=== PATIENT | male | born 1940 | race Caucasian/White ===

== ENCOUNTER → 2016-09-16 | Outpatient (REF) | payer MEDICARE, BC ==
[~2016-09-16] MED LIST: /WARF25TA; /WARF25TA PO; /WARF5TA; AMLO10TA2 PO; ANDROGEL; ASPI81TA4 PO; LISI10TA4; LISIPOW PO; LOVAZA; MULTIVIT; OSTETAB PO; PERC5TAB8; PERCOCET PO; PRIL20CA PO; TYLE325T5 PO
[2016-09-16 12:18] LABS: ANION GAP 8 MEQ/L (8-16); BLOOD UREA NITROGEN 21 MG/DL (7-18); CARBON DIOXIDE LEVEL 27 MEQ/L (21-32); CHLORIDE LEVEL 106 MEQ/L (98-107); CREATININE FOR GFR 0.86 MG/DL (0.70-1.30); GLOMERULAR FILTRATION RATE > 60.0 (>42); GLUCOSE, FASTING 97 MG/DL (83-110); POTASSIUM SERUM 3.9 MEQ/L (3.5-5.1); SODIUM LEVEL 141 MEQ/L (136-145)
== END ==
LOC: M LABDRAWC 11:18
PROVIDERS: ATTEND Internal Medicine Cardiovascular Disease
DX: I10 Essential (primary) hypertension (principal)

== ENCOUNTER → 2016-10-22 | Outpatient (REF) | payer MEDICARE, BC ==
[2016-10-22 11:47] LABS: ALBUMIN 3.5 GM/DL (3.2-5.2); ALBUMIN/GLOBULIN RATIO 1.17 (1.00-1.93); ALKALINE PHOSPHATASE 81 U/L (45-117); ALT/SGPT 35 U/L (12-78); ANION GAP 6 MEQ/L (8-16); AST/SGOT 15 U/L (15-37); BILIRUBIN,TOTAL 0.5 MG/DL (0.2-1.0); BLOOD UREA NITROGEN 20 MG/DL (7-18); CALCIUM LEVEL 8.8 MG/DL (8.8-10.2); CARBON DIOXIDE LEVEL 30 MEQ/L (21-32); CHLORIDE LEVEL 106 MEQ/L (98-107); CHOLESTEROL LEVEL 228 MG/DL (<200); CREATININE FOR GFR 0.84 MG/DL (0.70-1.30); GLOMERULAR FILTRATION RATE > 60.0 (>42); GLUCOSE, FASTING 107 MG/DL (83-110); POTASSIUM SERUM 4.2 MEQ/L (3.5-5.1); SODIUM LEVEL 142 MEQ/L (136-145); TOTAL PROTEIN 6.5 GM/DL (6.4-8.2); TRIGLYCERIDES LEVEL 119 MG/DL (<150)
== END ==
LOC: M SFHCCLAY 07:39
PROVIDERS: ATTEND Family Medicine
DX: I10 Essential (primary) hypertension (principal); E78.2 Mixed hyperlipidemia; Z12.5 Encounter for screening for malignant neoplasm of prostate
CPT/HCPCS: 80053; 80061; 84443; G0103

== ENCOUNTER → 2017-05-01 | Outpatient (REF) | payer MEDICARE, BC ==
[2017-05-01 12:40] LABS: ALBUMIN 3.6 GM/DL (3.2-5.2); ALBUMIN/GLOBULIN RATIO 1.16 (1.00-1.93); ALKALINE PHOSPHATASE 74 U/L (45-117); ALT/SGPT 38 U/L (12-78); ANION GAP 9 MEQ/L (8-16); AST/SGOT 18 U/L (7-37); BILIRUBIN,TOTAL 0.6 MG/DL (0.2-1.0); BLOOD UREA NITROGEN 19 MG/DL (7-18); CALCIUM LEVEL 8.7 MG/DL (8.8-10.2); CARBON DIOXIDE LEVEL 27 MEQ/L (21-32); CHLORIDE LEVEL 104 MEQ/L (98-107); CHOLESTEROL LEVEL 237 MG/DL (<200); CREATININE FOR GFR 0.93 MG/DL (0.70-1.30); GLOMERULAR FILTRATION RATE > 60.0 (>42); GLUCOSE, FASTING 117 MG/DL (83-110); SODIUM LEVEL 140 MEQ/L (136-145); TOTAL PROTEIN 6.7 GM/DL (6.4-8.2); TRIGLYCERIDES LEVEL 120 MG/DL (<150)
== END ==
LOC: M SFHCCLAY 07:56
PROVIDERS: ATTEND Family Medicine
DX: I10 Essential (primary) hypertension (principal); E78.2 Mixed hyperlipidemia

== ENCOUNTER → 2017-11-20 | Outpatient (REF) | payer MEDICARE, BC ==
[2017-11-20 12:01] LABS: ALBUMIN 3.4 GM/DL (3.2-5.2); ALBUMIN/GLOBULIN RATIO 1.13 (1.00-1.93); ALKALINE PHOSPHATASE 70 U/L (45-117); ALT/SGPT 29 U/L (12-78); ANION GAP 10 MEQ/L (8-16); AST/SGOT 17 U/L (7-37); BILIRUBIN,TOTAL 0.5 MG/DL (0.2-1.0); BLOOD UREA NITROGEN 20 MG/DL (7-18); CALCIUM LEVEL 8.5 MG/DL (8.8-10.2); CARBON DIOXIDE LEVEL 28 MEQ/L (21-32); CHLORIDE LEVEL 106 MEQ/L (98-107); CHOLESTEROL LEVEL 206 MG/DL (<200); CHOLESTEROL RISK RATIO 3.886 (<5); CREATININE FOR GFR 0.89 MG/DL (0.70-1.30); GLOMERULAR FILTRATION RATE > 60.0 (>42); GLUCOSE, FASTING 112 MG/DL (70-100); HDL CHOLESTEROL 53 MG/DL (>40); LDL CHOLESTEROL 131.8 MG/DL (<100); NON-HDL-C 153 MG/DL; POTASSIUM SERUM 3.6 MEQ/L (3.5-5.1); PSA SCREENING 0.16 NG/ML (< 4.0); SODIUM LEVEL 144 MEQ/L (136-145); TOTAL PROTEIN 6.4 GM/DL (6.4-8.2); TRIGLYCERIDES LEVEL 106 MG/DL (<150)
== END ==
LOC: M SFHCCLAY 07:08
DX: I10 Essential (primary) hypertension (principal); E78.2 Mixed hyperlipidemia; Z12.5 Encounter for screening for malignant neoplasm of prostate
CPT/HCPCS: 84443

== ENCOUNTER → 2018-05-22 | Outpatient (REF) | payer MEDICARE, BC ==
[2018-05-22 12:07] LABS: ALBUMIN 3.4 GM/DL (3.2-5.2); ALT/SGPT 38 U/L (12-78); BILIRUBIN,TOTAL 0.5 MG/DL (0.2-1.0); BLOOD UREA NITROGEN 25 MG/DL (7-18); CALCIUM LEVEL 8.9 MG/DL (8.8-10.2); CARBON DIOXIDE LEVEL 28 MEQ/L (21-32); CHLORIDE LEVEL 103 MEQ/L (98-107); CHOLESTEROL LEVEL 237 MG/DL (<200); CHOLESTEROL RISK RATIO 3.761 (<5); CREATININE FOR GFR 0.95 MG/DL (0.70-1.30); GLOMERULAR FILTRATION RATE > 60.0 (>42); GLUCOSE, FASTING 122 MG/DL (70-100); HDL CHOLESTEROL 63 MG/DL (>40); LDL CHOLESTEROL 153 MG/DL (<100); NON-HDL-C 174 MG/DL; POTASSIUM SERUM 4.3 MEQ/L (3.5-5.1); SODIUM LEVEL 141 MEQ/L (136-145); TOTAL PROTEIN 6.7 GM/DL (6.4-8.2); TRIGLYCERIDES LEVEL 103 MG/DL (<150)
== END ==
LOC: M SFHCCLAY 07:59
PROVIDERS: ATTEND Family Medicine
DX: I10 Essential (primary) hypertension (principal); E78.2 Mixed hyperlipidemia

== ENCOUNTER → 2018-11-26 | Outpatient (REF) | payer MEDICARE, BC ==
[~2018-11-26] MED LIST changes: -/WARF25TA; -/WARF25TA PO; -/WARF5TA; +COUM1TAB17; +COUM1TAB18; +COUM1TAB18 PO; +OXYC1TAB23 PO; -PERCOCET PO
[2018-11-26 12:22] LABS: ALBUMIN 3.5 GM/DL (3.2-5.2); ALT/SGPT 26 U/L (12-78); BILIRUBIN,TOTAL 0.4 MG/DL (0.2-1.0); BLOOD UREA NITROGEN 21 MG/DL (7-18); CALCIUM LEVEL 8.6 MG/DL (8.8-10.2); CARBON DIOXIDE LEVEL 26 MEQ/L (21-32); CHLORIDE LEVEL 106 MEQ/L (98-107); CREATININE FOR GFR 0.78 MG/DL (0.70-1.30); GLOMERULAR FILTRATION RATE > 60.0 (>42); GLUCOSE, FASTING 118 MG/DL (70-100); POTASSIUM SERUM 3.6 MEQ/L (3.5-5.1); SODIUM LEVEL 140 MEQ/L (136-145); TOTAL PROTEIN 6.8 GM/DL (6.4-8.2)
== END ==
LOC: M SFHCCLAY 07:19
PROVIDERS: ATTEND Family Medicine
DX: I10 Essential (primary) hypertension (principal)

== ENCOUNTER → 2019-06-10 | Outpatient (REF) | payer MEDICARE, BC ==
[2019-06-10 12:39] LABS: ALBUMIN 3.6 GM/DL (3.2-5.2); ALT/SGPT 33 U/L (12-78); BILIRUBIN,TOTAL 0.5 MG/DL (0.2-1.0); BLOOD UREA NITROGEN 15 MG/DL (7-18); CALCIUM LEVEL 8.9 MG/DL (8.8-10.2); CARBON DIOXIDE LEVEL 29 MEQ/L (21-32); CHLORIDE LEVEL 105 MEQ/L (98-107); CHOLESTEROL LEVEL 143 MG/DL (<200); CHOLESTEROL RISK RATIO 2.423 (<5); CREATININE FOR GFR 0.87 MG/DL (0.70-1.30); GLOMERULAR FILTRATION RATE > 60.0 (>42); GLUCOSE, FASTING 120 MG/DL (70-100); HDL CHOLESTEROL 59 MG/DL (>40); LDL CHOLESTEROL 61 MG/DL (<100); NON-HDL-C 84 MG/DL; POTASSIUM SERUM 4.1 MEQ/L (3.5-5.1); SODIUM LEVEL 140 MEQ/L (136-145); TOTAL PROTEIN 7.1 GM/DL (6.4-8.2); TRIGLYCERIDES LEVEL 113 MG/DL (<150)
== END ==
LOC: M SFHCCLAY 07:10
PROVIDERS: ATTEND Family Medicine
DX: I10 Essential (primary) hypertension (principal); E78.2 Mixed hyperlipidemia

== ENCOUNTER → 2019-09-13 | Outpatient (REF) | payer MEDICARE, BC ==
[2019-09-13 11:46] LABS: ALBUMIN 3.7 GM/DL (3.2-5.2); ALT/SGPT 39 U/L (12-78); BILIRUBIN,TOTAL 0.5 MG/DL (0.2-1.0); BLOOD UREA NITROGEN 15 MG/DL (7-18); CALCIUM LEVEL 8.7 MG/DL (8.8-10.2); CARBON DIOXIDE LEVEL 30 MEQ/L (21-32); CHLORIDE LEVEL 107 MEQ/L (98-107); GLOMERULAR FILTRATION RATE > 60.0 (>42); GLUCOSE, FASTING 109 MG/DL (70-100); SODIUM LEVEL 142 MEQ/L (136-145)
== END ==
LOC: M SFHCCLAY 08:12
PROVIDERS: ATTEND Family Medicine
DX: I25.10 Atherosclerotic heart disease of native coronary artery without angina pectoris (principal)

== ENCOUNTER 2019-11-14 13:31 | Observation (INO) | payer MEDICARE, BC ==
[~2019-11-14] VITALS: Ht 175.3 cm; Wt 118.4 kg
[2019-11-14] MEDS ORDERED: AMLO5TAB6 PO (13:52)
[2019-11-14] MEDS ORDERED: OMEP-218 PO (13:52)
[2019-11-14] MEDS ORDERED: METO1TAB87 PO (13:52)
[2019-11-14] MEDS ORDERED: ASPI81TA85 PO (13:52)
[2019-11-14] MEDS ORDERED: ISOS30TA4 PO (13:52)
[2019-11-14] MEDS ORDERED: CLOP75TA2 PO (13:52)
[2019-11-14] MEDS ORDERED: ATOR40TA75 PO (13:52)
[2019-11-14 14:17] LABS: BASO # 0.1 10^3/uL (0.0-0.2); BASO % 0.9 % (0.0-1.0); EOS # 0.1 10^3/uL (0.0-0.5); EOS % 0.9 % (0.0-3.0); HEMATOCRIT 41.9 % (42.0-52.0); HEMOGLOBIN 13.5 g/dl (13.5-17.5); LYMPH # 1.7 10^3/uL (1.5-5.0); LYMPH % 19.2 % (24.0-44.0); MEAN CORPUSCULAR HEMOGLOBIN 30.5 pg (27.0-33.0); MEAN CORPUSCULAR HGB CONC 32.2 g/dl (32.0-36.5); MEAN CORPUSCULAR VOLUME 94.8 fl (80.0-96.0); MONO # 0.6 10^3/uL (0.0-0.8); MONO % 6.7 % (0.0-5.0); NEUTROPHILS # 6.3 10^3/uL (1.5-8.5); NEUTROPHILS % 71.4 % (36.0-66.0); PLATELET COUNT, AUTOMATED 360 10^3/uL (150-450); RED BLOOD COUNT 4.42 10^6/uL (4.30-6.10); WHITE BLOOD COUNT 8.9 10^3/uL (4.0-10.0)
--- NOTE | 2019-11-14 14:17 | REP ---
Clinical: Syncope . Findings: Age-related atrophy and microvascular ischemic changes are appreciated. The ventricles and sulci are symmetric. Espinoza-white differentiation is maintained. There is no evidence for acute intracranial hemorrhage, mass/mass effect, pathology or infarction. No extra-axial fluid collection. Calvarium is intact. Paranasal sinuses and mastoid air cells are clear. Impression: Age related atrophy and microvascular ischemic changes. No acute intracranial hemorrhage, infarction, or mass/mass effect. Electronically Signed by Yong Hui MD 11/14/2019 02:09 P
--- NOTE | 2019-11-14 14:37 | REP ---
Clinical: Syncope . Comparison: 07/24/2012 . Findings: The mediastinum and cardiac silhouette are stable and within normal limits for portable technique. The lung sebastian are clear without acute consolidation, effusion, or pneumothorax. Skeletal structures are intact. Impression: No acute cardiopulmonary process appreciated. Electronically Signed by Yong Hui MD 11/14/2019 02:29 P
[2019-11-14] MEDS ORDERED: ACETAMINOPHEN TAB 650MG DOSE (2X325MG) PO PRN (21:30)
[2019-11-14] MEDS ORDERED: ACET650T15 PO (21:40)
[2019-11-14] MEDS ORDERED: OMEG10002 PO (21:40)
--- NOTE | 2019-11-14 21:53 | HPEPDOC ---
General Date of Admission 11/14/19 Date of Service: Nov 14, 2019 Chief Complaint The patient is a 79-year-old male admitted with a reason for visit of Syncope. Source: Patient Exam Limitations: No limitations Timing/Duration: 24 hours Severity: Mild Associated Symptoms: Syncope History of Present Illness Patient is 79 years old male with past medical history of psoriasis, hypertension, OH, with multiple stents, coronary artery diseases presented to the hospital after syncope. Patient was visiting his brother who is on hospice, was outside when he started to feel lightheaded at and syncopized. Bystanders said he stopped breathing and started CPR and after a few compressions patient regained consciousness. Patient stated that occasionally he has been had syncope. In ER patient was found to have EKG without acute ischemic changes, first and second troponin negative. Dr. Grimes was contacted and he recommended admission. Also patient was found to have hypertensive urgency Home Medications Scheduled Acetaminophen (Acetaminophen ER) 650 Mg Tablet.er, 1,300 MG PO DAILY, (Reported) Amlodipine Besylate (Amlodipine Besylate) 5 Mg Tablet, 5 MG PO DAILY, (Reported) Aspirin (Aspir 81) 81 Mg Tablet.dr, 81 MG PO DAILY, (Reported) Atorvastatin Calcium (Atorvastatin Calcium) 40 Mg Tablet, 40 MG PO DAILY, (Reported) Clopidogrel Bisulfate (Clopidogrel) 75 Mg Tablet, 75 MG PO DAILY, (Reported) Isosorbide Mononitrate (Isosorbide Mononitrate ER) 30 Mg Tab.er.24h, 30 MG PO DAILY, (Reported) Metoprolol Tartrate (Metoprolol Tartrate) 25 Mg Tablet, 25 MG PO Q2D, (Reported) [place]-3/Dha/Epa/Fish Oil (Fish Oil 1,000 mg Softgel) 1 Each Capsule, 2,000 MG PO DAILY, (Reported) Omeprazole (Omeprazole) 20 Mg Capsule.dr, 20 MG PO DAILY, (Reported) Allergies Coded Allergies: MS - Penicillins (Unverified Allergy, Intermediate, HIVES, 08/17/12) MS - Penicillins Cross Reactors (Unverified Allergy, Intermediate, HIVES, 08/17/12) NSAIDS (Non-Steroidal Anti-Inflamma (Verified Allergy, Unknown, Hives, 11/14/19) Penicillins (Verified Allergy, Unknown, hives, 11/14/19) ciprofloxacin (Verified Allergy, Unknown, rash, 11/14/19) MS - NSAIDs (Verified Adverse Reaction, Mild, psoriasis, 08/17/12) Past Medical History Medical History PSORIASIS MILD ELEVATED CHOLESTEROL-DIET CONTROLLED HYPERTENSION HIATAL HERNIA GERD NON ST ELEVATED OH Surgical History T&A 194 CATARACT LLILIAM EYE DET RETINA RT HIP REPLACEMENT LT HIP REPLACEMENT 08/07/2012 LAPAROSCOPIC - LEFT KNEE 2000 HEART CATH-ONE PLUGGED VESSEL 05/09/2019 Family History FATHER: , LIVER CANCER MOTHER: , NATURAL CAUSES SIBLINGS: ALIVE, ESOPHAGUS CANCER 3 BROTHER(S) - HEALTHY. PT HAS HX KIDNEY STONE.BROTHER IS NOW ON O2 DUE TO SMOKING, ESAPHAGEAL CANCER. Social History * Smoker: pipe Alcohol: occationally Drugs: denies A-FIB/CHADSVASC A-FIB History Current/History of A-Fib/PAF?: No Current PO Anticoag Therapy: No Review of Systems Constitutional: Denies: Chills, Fever Eyes: Denies: Pain, Vision change ENT: Denies: Head Aches Skin: Denies: Rash, Lesions Pulmonary: Denies: Dyspnea Cardiovascular: Denies: Chest Pain Gastrointestinal: Denies: Nausea, Vomiting Genitourinary: Denies: Dysuria Hematologic: Denies: Bruising Endocrine: Denies: Polydipsia Musculoskeletal: Denies: Neck Pain Neurological: Denies: Weakness Psych: Reports: Mood Normal Physical Examination General Exam: Positive: Alert, Cooperative Eye Exam: Positive: PERRLA ENT Exam: Positive: Atraumatic Neck Exam: Positive: Supple; Negative: JVD Chest Exam: Positive: Clear to auscultation Heart Exam: Positive: Rate Normal Telemetry: Positive: No significant arrhythmia Abdomen Exam: Positive: Normal bowel sounds Extremity Exam: Negative: Clubbing, Cyanosis Skin Exam: Positive: Nl turgor and temperature Neuro Exam: Positive: Strength at 5/5 X4 ext, Cranial Nerves 3-12 NL Psych Exam: Positive: Mental status NL Vital Signs Vital Signs Date Time Temp Pulse Resp B/P (MAP) Pulse Ox O2 Delivery O2 Flow Rate FiO2 11/14/19 21:01 56 95 11/14/19 20:00 198/90 (126) 11/14/19 19:00 16 Room Air 11/14/19 13:48 95.8 Laboratory Data Labs 24H Laboratory Tests 2 11/14/19 14:00: POC Troponin I (Misc) 0.00 11/14/19 14:02: Immature Granulocyte % (Auto) 0.9, Neutrophils (%) (Auto) 71.4H, Lymphocytes (%) (Auto) 19.2L, Monocytes (%) (Auto) 6.7H, Eosinophils (%) (Auto) 0.9, Basophils (%) (Auto) 0.9, Neutrophils # (Auto) 6.3, Lymphocytes # (Auto) 1.7, Monocytes # (Auto) 0.6, Eosinophils # (Auto) 0.1, Basophils # (Auto) 0.1, Nucleated Red Blood Cells % (auto) 0.0, Magnesium Level 1.8 11/14/19 14:04: POC Glucose (Misc Panel) 136H, POC Sodium (Misc Panel) 141, POC Potassium (Misc Panel) 3.6, POC Chloride (Misc Panel) 104, POC Total CO2 (Misc Panel) 21.0L, POC Blood Urea Nitrogen (Misc Panel 17, POC Ionized Calcium (Misc Panel) 4.4L, POC Creatinine (Misc Panel) 0.9, POC Hematocrit (Misc Panel) 42.0 11/14/19 16:01: POC Troponin I (Misc) 0.01 11/14/19 20:18: POC Troponin I (Misc) 0.00 CBC/BMP Laboratory Tests 11/14/19 14:02 Assessment/Plan Patient is 79 years old male with past medical history of psoriasis, hypertension, [place], with multiple stents, coronary artery diseases presented to the hospital after syncope. Patient was visiting his brother who is on hospice, was outside when he started to feel lightheaded at and syncopized. Bystanders said he stopped breathing and started CPR and after a few compressions patient regained consciousness. Patient stated that occasionally he has been had syncope. In ER patient was found to have EKG without acute ischemic changes, first and second troponin negative. Dr. Grimes was contacted and he recommended admission. Also patient was found to have hypertensive urgency Problems (1) Syncope Status: Acute Problem Text: Most likely vasovagal Telemetry Will do echo in the morning Dr. Grimes will see him in a.m. We'll repeat EKG in the morning (2) Hypertensive urgency Problem Text: Continue home cardioprotective medication I will give lisinopril 20 mg (3) Coronary artery disease Status: Chronic Problem Text: Continue home cardioprotective medications I will discontinue amlodipine and we will start CHAIM inhibitors Plan / VTE VTE Prophylaxis Ordered?: Yes SANTIAGO SOSA DO Nov 14, 2019 21:53
[2019-11-14] MEDS ORDERED: lisinopriL 20 MG TAB PO ONE (22:00)
[2019-11-14 23:32] LABS: HEMATOCRIT 38.3 % (42.0-52.0); HEMOGLOBIN 12.5 g/dl (13.5-17.5); MEAN CORPUSCULAR HEMOGLOBIN 30.6 pg (27.0-33.0); MEAN CORPUSCULAR HGB CONC 32.6 g/dl (32.0-36.5); MEAN CORPUSCULAR VOLUME 93.9 fl (80.0-96.0); PLATELET COUNT, AUTOMATED 329 10^3/uL (150-450); RED BLOOD COUNT 4.08 10^6/uL (4.30-6.10); WHITE BLOOD COUNT 7.7 10^3/uL (4.0-10.0)
[2019-11-14 23:42] VITALS: BP 148/60
[2019-11-14 23:57] LABS: BLOOD UREA NITROGEN 16 MG/DL (7-18); CALCIUM LEVEL 8.4 MG/DL (8.8-10.2); CARBON DIOXIDE LEVEL 28 MEQ/L (21-32); CHLORIDE LEVEL 108 MEQ/L (98-107); CREATININE FOR GFR 0.91 MG/DL (0.70-1.30); GLOMERULAR FILTRATION RATE > 60.0 (>42); GLUCOSE, FASTING 108 MG/DL (70-100); SODIUM LEVEL 142 MEQ/L (136-145)
[2019-11-15] MEDS: HEPARIN SOD (PORCINE) 5000UNITS/ML VIAL (J1644 PER 1000UNITS) SC SCH ×2 (00:10→09:22)
[2019-11-15 05:43] LABS: HEMATOCRIT 38.5 % (42.0-52.0); HEMOGLOBIN 12.6 g/dl (13.5-17.5); MEAN CORPUSCULAR HEMOGLOBIN 30.7 pg (27.0-33.0); MEAN CORPUSCULAR HGB CONC 32.7 g/dl (32.0-36.5); MEAN CORPUSCULAR VOLUME 93.9 fl (80.0-96.0); PLATELET COUNT, AUTOMATED 318 10^3/uL (150-450); WHITE BLOOD COUNT 7.4 10^3/uL (4.0-10.0)
[2019-11-15 06:00] VITALS: BP 153/77
[2019-11-15 06:06] LABS: BLOOD UREA NITROGEN 15 MG/DL (7-18); CALCIUM LEVEL 8.6 MG/DL (8.8-10.2); CARBON DIOXIDE LEVEL 26 MEQ/L (21-32); CHLORIDE LEVEL 107 MEQ/L (98-107); CREATININE FOR GFR 0.83 MG/DL (0.70-1.30); GLOMERULAR FILTRATION RATE > 60.0 (>42); GLUCOSE, FASTING 104 MG/DL (70-100); MAGNESIUM LEVEL 1.9 MG/DL (1.8-2.4); SODIUM LEVEL 141 MEQ/L (136-145)
--- NOTE | 2019-11-15 07:57 | ECGEPIP ---
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
[2019-11-15] MEDS ORDERED: ISOSORBIDE MON. (IMDUR) 30 MG XR TAB PO SCH (09:00)
[2019-11-15] MEDS ORDERED: METOPROLOL TART 25 MG TABLET PO SCH (09:00)
[2019-11-15] MEDS ORDERED: CLOPIDOGREL 75 MG TAB PO SCH (09:00)
[2019-11-15] MEDS ORDERED: OMEPRAZOLE 20 MG CAP PO SCH (09:00)
[2019-11-15] MEDS ORDERED: ASPIRIN 81 MG ENTERIC TAB PO SCH (09:00)
[2019-11-15] MEDS ORDERED: lisinopriL 20 MG TAB PO SCH (09:00)
[2019-11-15] MEDS ORDERED: amLODIPine 5 MG TAB PO SCH (09:00)
[2019-11-15] MEDS ORDERED: ATORVASTATIN 20 MG TAB PO SCH (09:00)
--- NOTE | 2019-11-15 09:02 | ECGEPIP ---
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
--- NOTE | 2019-11-15 09:04 | ECGEPIP ---
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
[2019-11-15 09:19] VITALS: BP 132/68
--- NOTE | 2019-11-15 13:01 | DS.PDOC ---
Discharge Summary General Date of Admission Nov 14, 2019 at 21:26 Date of Discharge 11/15/2019 Attending Physician: OLVIN GOMEZ MD Discharge Summary PROCEDURES PERFORMED DURING STAY: None ADMITTING DIAGNOSES: 1. Syncope DISCHARGE DIAGNOSES: 1. Vasovagal syncope 2. Hypertensive urgency 3. Psoriasis 4. mild HLD, diet controlled 5. chronic hypertension 6. GERD 7. CAD COMPLICATIONS/CHIEF COMPLAINT: Syncope. HISTORY OF PRESENT ILLNESS: 79 year old M with a history of psoriasis, hypertension, MS, with multiple stents, coronary artery disease who presented to the hospital after syncope while visiting his brother who is on hospice. He was outside when he started to feel lightheaded and syncopized. Bystanders said that he stopped breathing and started CPR and after a few compressions patient regained consciousness. Patient stated that occasionally he had syncopal episodes eversince his youth, especially when it is hot and humid. HOSPITAL COURSE: In the ED, he was hemodynamically stable and afebrile, with an EKG without acute ischemic changes, with negative troponin x2. Dr. Grimes was contacted and he recommended admission and monitoring on telemetry. Overnight he remained in NSR without any noted ectopy or heart block. He was euvolemic on exam with trace bilateral LE edema, was not orthostatic, had an unremarkable CT head, CXR and is now being discharged home with close cardiology follow up. We deferred a TTE per Dr. Grimes (who is not officially consulted, but was aware of the admission due to the call from the ED physicians) because he recently had an echo as an outpatient with a normal EF. DISCHARGE MEDICATIONS: Please see below. ALLERGIES: Please see below. PHYSICAL EXAMINATION ON DISCHARGE: VITAL SIGNS: Please see below. General: Alert, Cooperative Eye: PERRLA, EOMI, anicteric ENT: Atraumatic, MMM Neck: Supple, no JVD Chest: Clear to auscultation Heart: 2/6 holosystolic murmur, RRR Telemetry: No significant arrhythmia Abdomen: Normal bowel sounds, obese, soft, NTND Extremities: trace bilateral LE edema, WWP Skin: Nl turgor and temperature, no rashes Neuro: Strength at 5/5 X4 ext, Cranial Nerves 3-12 NL Psych: Mental status NL, AOx3, becomes teary on account of discussing his recently passed brother, whom I just discharged home on hospice recently LABORATORY DATA: Please see below. IMAGING: CXR: no acute cardiopulmonary pathology CT head: Age related atrophy and microvascular ischemic changes. No acute intracranial hemorrhage, infarction, or mass/mass effect. PROGNOSIS: Good ACTIVITY: As tolerated DIET: 2g sodium DISCHARGE PLAN: Home with close cardiology follow up DISPOSITION: Home DISCHARGE INSTRUCTIONS: 1. Please stay hydrated in the heat. Please see your cardiology within the next 1-2 weeks. PCP within 7d. ITEMS TO FOLLOWUP ON ON OUTPATIENT: 1. Syncope DISCHARGE CONDITION: Stable TIME SPENT ON DISCHARGE: 31 minutes. Vital Signs/I&Os Vital Signs Date Time Temp Pulse Resp B/P (MAP) Pulse Ox O2 Delivery O2 Flow Rate FiO2 11/15/19 09:19 132/68 11/15/19 09:00 57 11/15/19 06:00 98.2 18 96 Room Air I&O- Last 24 Hours up to 6 AM 11/15/19 06:00 Intake Total 120 ml Output Total 500 ml Balance -380 ml Laboratory Data Labs 24H Laboratory Tests 2 11/14/19 14:00: POC Troponin I (Misc) 0.00 11/14/19 14:02: Immature Granulocyte % (Auto) 0.9, Neutrophils (%) (Auto) 71.4H, Lymphocytes (%) (Auto) 19.2L, Monocytes (%) (Auto) 6.7H, Eosinophils (%) (Auto) 0.9, Basophils (%) (Auto) 0.9, Neutrophils # (Auto) 6.3, Lymphocytes # (Auto) 1.7, Monocytes # (Auto) 0.6, Eosinophils # (Auto) 0.1, Basophils # (Auto) 0.1, Nucleated Red Blood Cells % (auto) 0.0, Magnesium Level 1.8 11/14/19 14:04: POC Glucose (Misc Panel) 136H, POC Sodium (Misc Panel) 141, POC Potassium (Misc Panel) 3.6, POC Chloride (Misc Panel) 104, POC Total CO2 (Misc Panel) 21.0L, POC Blood Urea Nitrogen (Misc Panel 17, POC Ionized Calcium (Misc Panel) 4.4L, POC Creatinine (Misc Panel) 0.9, POC Hematocrit (Misc Panel) 42.0 11/14/19 16:01: POC Troponin I (Misc) 0.01 11/14/19 20:18: POC Troponin I (Misc) 0.00 11/14/19 23:24: Nucleated Red Blood Cells % (auto) 0.0, Anion Gap 6L, Glomerular Filtration Rate > 60.0, Calcium Level 8.4L 11/15/19 05:19: Nucleated Red Blood Cells % (auto) 0.0, Anion Gap 8, Glomerular Filtration Rate > 60.0, Calcium Level 8.6L, Magnesium Level 1.9 CBC/BMP Laboratory Tests 11/14/19 14:02 11/14/19 23:24 11/15/19 05:19 Discharge Medications Scheduled Acetaminophen (Acetaminophen ER) 650 Mg Tablet.er, 1,300 MG PO DAILY, (Reported) Amlodipine Besylate (Amlodipine Besylate) 5 Mg Tablet, 5 MG PO DAILY, (Reported) Aspirin (Aspir 81) 81 Mg Tablet.dr, 81 MG PO DAILY, (Reported) Atorvastatin Calcium (Atorvastatin Calcium) 40 Mg Tablet, 40 MG PO DAILY, (Reported) Clopidogrel Bisulfate (Clopidogrel) 75 Mg Tablet, 75 MG PO DAILY, (Reported) Isosorbide Mononitrate (Isosorbide Mononitrate ER) 30 Mg Tab.er.24h, 30 MG PO DAILY, (Reported) Metoprolol Tartrate (Metoprolol Tartrate) 25 Mg Tablet, 25 MG PO Q2D, (Reported) [place]-3/Dha/Epa/Fish Oil (Fish Oil 1,000 mg Softgel) 1 Each Capsule, 2,000 MG PO DAILY, (Reported) Omeprazole (Omeprazole) 20 Mg Capsule.dr, 20 MG PO DAILY, (Reported) Allergies Coded Allergies: Penicillins (Verified Allergy, Intermediate, hives, 11/14/19) NSAIDS (Non-Steroidal Anti-Inflamma (Verified Allergy, Unknown, Hives, 11/14/19) ciprofloxacin (Verified Allergy, Unknown, rash, 11/14/19) OLVIN GOMEZ MD Nov 15, 2019 13:01
[2019-11-15] MEDS ORDERED: AMLO5TAB6 PO (13:02)
[2019-11-15] MEDS ORDERED: METO1TAB87 PO (13:02)
[2019-11-15 14:00] VITALS: BP 121/64
--- NOTE | 2019-11-16 11:03 | ECHO ---
DATE OF PROCEDURE: 11/15/2019 REFERRING PHYSICIAN: Dr. Chavez INDICATION: Syncope. HEIGHT: 175 cm WEIGHT: 118 kg DIMENSIONS: IVS: 1.4 LV: 6.2 LVPW: 1.3 LA: 4.0 Aorta: 3.8 IVC: 1.3 Mitral E wave velocity: 69, A wave 96 E prime septal: 4.5 E prime lateral: 5.9 FINDINGS: The study is of fair technical quality corresponding to patient's body habitus. The patient is in sinus rhythm. Left ventricle is dilated but has normal contractility. Overall estimated left ventricular ejection fraction (LVEF) is 65-70%. Mild left ventricular hypertrophy (LVH) is noted. The right ventricle was relatively poorly seen but grossly appears normal. Both atria are at least mildly enlarged. Aortic valve is minimally sclerotic but it has three cusps and preserved mobility. Same applies for mitral valve with mild degenerative abnormalities but preserved mobility. Tricuspid and pulmonic valves were relatively poorly visualized but grossly appear normal. No pericardial effusion is noted. Inferior vena cava is of normal size and appropriately collapses with inspiration indicative of normal central venous pressure. Aortic root and abdominal aorta appear normal. Aortic arch was not well seen. Doppler interrogation of aortic valve reveals no stenosis and trace insufficiency. There is also trace mitral and tricuspid insufficiency. Calculated pulmonary artery pressure is in high 20s corresponding to upper limits of normal values. Mitral inflow pattern and tissue Doppler imaging of mitral annulus reveal grade 1 diastolic dysfunction. CONCLUSION: 1. The study is of acceptable technical quality corresponding to patient's body habitus. The patient is in sinus rhythm. 2. Dilated left ventricle with mild LVH and normal LV systolic function. Grade 1 diastolic dysfunction. 3. No hemodynamically significant valvular disease. 4. Normal central venous pressure and likely normal pulmonary artery pressure. COMMENTS: Subacute bacterial endocarditis (SBE) prophylaxis is not recommended. No findings to directly explain etiology of syncope.
== END 2019-11-15 15:58 | disposition home or self-care (01) ==
LOC: EDBD 13:31 → M ED 13:31 → M ED INP 21:26 → ENRESERV 22:23 → M MSPAV 23:42
PROVIDERS: ADMIT Internal Medicine; ATTEND Internal Medicine
DX: R55 Syncope and collapse (principal); I16.0 Hypertensive urgency; L40.9 Psoriasis, unspecified; E78.5 Hyperlipidemia, unspecified; I11.9 Hypertensive heart disease without heart failure; K21.9 Gastro-esophageal reflux disease without esophagitis; I25.10 Atherosclerotic heart disease of native coronary artery without angina pectoris; I25.2 Old myocardial infarction; Z95.5 Presence of coronary angioplasty implant and graft; Z79.899 Other long term (current) drug therapy; Z79.82 Long term (current) use of aspirin; Z79.02 Long term (current) use of antithrombotics/antiplatelets; Z88.0 Allergy status to penicillin; Z88.1 Allergy status to other antibiotic agents; Z88.8 Allergy status to other drugs, medicaments and biological substances; F17.290 Nicotine dependence, other tobacco product, uncomplicated
CPT/HCPCS: 36415; 70450; 71045; 80047; 80048; 83735; 84484; 85025; 85027; 93005; 93041; 93306; 94760; 96372; 99285; G0378; J1644

== ENCOUNTER → 2020-11-03 | Outpatient (REF) | payer MEDICARE, BC ==
[~2020-11-03] MED LIST changes: +ACET650T15 PO; +AMLO1TAB24 PO; +ASPI81TA86 PO; +ATOR40TA75 PO; +CLOP75TA2 PO; +ISOS1TAB35 PO; +METO1TAB87 PO; +OMEG10002 PO; +OMEP-218 PO
[2020-11-03 13:34] LABS: BLOOD UREA NITROGEN 16 MG/DL (7-18); CALCIUM LEVEL 8.9 MG/DL (8.8-10.2); CARBON DIOXIDE LEVEL 25 MEQ/L (21-32); CHLORIDE LEVEL 110 MEQ/L (98-107); CHOLESTEROL LEVEL 151 MG/DL (<200); CHOLESTEROL RISK RATIO 2.696 (<5); CREATININE FOR GFR 0.78 MG/DL (0.70-1.30); GLOMERULAR FILTRATION RATE > 60.0 (>42); GLUCOSE, FASTING 122 MG/DL (70-100); HDL CHOLESTEROL 56 MG/DL (>40); LDL CHOLESTEROL 74 MG/DL (<100); NON-HDL-C 95 MG/DL; POTASSIUM SERUM 3.8 MEQ/L (3.5-5.1); SODIUM LEVEL 142 MEQ/L (136-145); TRIGLYCERIDES LEVEL 107 MG/DL (<150)
== END ==
LOC: M SFHCCLAY 07:13
PROVIDERS: ATTEND Family Medicine
DX: I25.10 Atherosclerotic heart disease of native coronary artery without angina pectoris (principal); I11.9 Hypertensive heart disease without heart failure

== ENCOUNTER → 2021-03-01 | Outpatient (CLI) | payer MEDICARE ==
--- NOTE | 2021-03-01 15:53 | REP ---
INDICATION: Assess stenosis TECHNIQUE: Carotid ultrasonography was performed bilaterally FINDINGS: Right: CCA systolic: 73.9 centimeters/second CCA diastolic: 10.8 centimeters/second ICA systolic: 91.4 centimeters/second ICA diastolic: 20.4 centimeters/second ICA CCA ratio: 1.24 Left: CCA systolic: 94.1 centimeters/second CCA diastolic: 14.4 centimeters/second ICA systolic: 70.6 centimeters/second ICA diastolic: 19.2 centimeters/second ICA CCA ratio: 0.75 Vertebral artery: Right: Antegrade flow left: Antegrade flow Patchy echogenic material is seen along the carotid arterial martinez some of which casts in acoustic shadow IMPRESSION: According to the SRU criteria there is less than 50% stenosis of the internal carotid artery bilaterally. This is secondary to both calcified and noncalcified atheromatous plaque formation. <Electronically signed by Nj Chavarria > 03/01/21 [id number]
== END ==
LOC: M RAD 14:53
PROVIDERS: ATTEND Internal Medicine Cardiovascular Disease
DX: R42 Dizziness and giddiness (principal); I65.23 Occlusion and stenosis of bilateral carotid arteries

== ENCOUNTER → 2021-12-17 | Outpatient (REF) | payer MEDICARE, BC ==
[~2021-12-17] MED LIST changes: +OMEP-173 PO; -OMEP-218 PO
[2021-12-17 12:23] LABS: HEMOGLOBIN 13.8 g/dl (13.5-17.5); MEAN CORPUSCULAR HEMOGLOBIN 29.6 pg (27.0-33.0); MEAN CORPUSCULAR HGB CONC 32.1 g/dl (32.0-36.5); MEAN CORPUSCULAR VOLUME 92.3 fl (80.0-96.0); PLATELET COUNT, AUTOMATED 325 10^3/uL (150-450); RED BLOOD COUNT 4.66 10^6/uL (4.30-6.10)
[2021-12-17 12:48] LABS: ALBUMIN 3.1 GM/DL (3.2-5.2); ALT/SGPT 33 U/L (12-78); BILIRUBIN,TOTAL 0.5 MG/DL (0.2-1.0); BLOOD UREA NITROGEN 12 MG/DL (7-18); CALCIUM LEVEL 8.6 MG/DL (8.8-10.2); CARBON DIOXIDE LEVEL 27 MEQ/L (21-32); CHLORIDE LEVEL 108 MEQ/L (98-107); CHOLESTEROL LEVEL 126 MG/DL (<200); CHOLESTEROL RISK RATIO 2.377 (<5); CREATININE FOR GFR 0.92 MG/DL (0.70-1.30); GLOMERULAR FILTRATION RATE > 60.0 (>42); GLUCOSE, FASTING 111 MG/DL (70-100); HDL CHOLESTEROL 53 MG/DL (>40); LDL CHOLESTEROL 54 MG/DL (<100); NON-HDL-C 73 MG/DL; NT-PRO BNP 987 PG/ML (<450); POTASSIUM SERUM 3.8 MEQ/L (3.5-5.1); SODIUM LEVEL 141 MEQ/L (136-145); TOTAL PROTEIN 6.1 GM/DL (6.4-8.2); TRIGLYCERIDES LEVEL 93 MG/DL (<150)
== END ==
LOC: M LABDRAWC 11:15
PROVIDERS: ATTEND Internal Medicine Cardiovascular Disease
DX: I48.91 Unspecified atrial fibrillation (principal); I25.84 Coronary atherosclerosis due to calcified coronary lesion; I25.10 Atherosclerotic heart disease of native coronary artery without angina pectoris; I10 Essential (primary) hypertension; R06.00 Dyspnea, unspecified; E78.00 Pure hypercholesterolemia, unspecified

== ENCOUNTER → 2022-08-23 | Outpatient (REF) | payer MEDICARE, BC ==
[2022-08-23 12:13] LABS: PROTHROMBIN TIME 13.4 SECONDS (12.5-14.5)
[2022-08-23 12:14] LABS: PARTIAL THROMBOPLASTIN TIME 29.5 SECONDS (24.8-34.2)
[2022-08-23 12:24] LABS: BLOOD UREA NITROGEN 12 MG/DL (9-23); CALCIUM LEVEL 8.4 MG/DL (8.3-10.6); CARBON DIOXIDE LEVEL 29 MMOL/L (20-31); CHLORIDE LEVEL 106 MMOL/L (98-107); CREATININE FOR GFR 0.84 MG/DL (0.70-1.30); GLOMERULAR FILTRATION RATE > 60.0 (>35); GLUCOSE, FASTING 116 MG/DL (74-106); POTASSIUM SERUM 4.4 MMOL/L (3.5-5.1); SODIUM LEVEL 141 MMOL/L (136-145)
== END ==
LOC: M LABDRWAD 11:23
PROVIDERS: ATTEND Surgery Vascular Surgery
DX: I72.8 Aneurysm of other specified arteries (principal)

== ENCOUNTER → 2022-08-26 | Outpatient (REF) | payer MEDICARE, BC | LOC: M SFHCCLAY 11:48 | PROVIDERS: ATTEND Nurse Practitioner Family | DX: Z01.818 Encounter for other preprocedural examination (principal); Z20.822 Contact with and (suspected) exposure to COVID-19 ==

== ENCOUNTER → 2023-01-24 | Outpatient (REF) | payer MEDICARE, BC ==
[2023-01-24 12:40] LABS: BLOOD UREA NITROGEN 21 MG/DL (9-23); CALCIUM LEVEL 8.8 MG/DL (8.3-10.6); CARBON DIOXIDE LEVEL 29 MMOL/L (20-31); CHLORIDE LEVEL 105 MMOL/L (98-107); CREATININE FOR GFR 0.99 MG/DL (0.70-1.30); GLOMERULAR FILTRATION RATE > 60.0 (>35); GLUCOSE, FASTING 141 MG/DL (74-106); POTASSIUM SERUM 3.8 MMOL/L (3.5-5.1); SODIUM LEVEL 141 MMOL/L (136-145)
== END ==
LOC: M SFHCCLAY 07:14
PROVIDERS: ATTEND Family Medicine
DX: I10 Essential (primary) hypertension (principal)

== ENCOUNTER → 2023-05-05 | Outpatient (REF) | payer MEDICARE, BC ==
[2023-05-05 11:04] LABS: APPEARANCE, URINE HAZY (CLEAR); BACTERIA, URINE AUTO 1+ (NEGATIVE); BILIRUBIN, URINE AUTO NEGATIVE (NEGATIVE); BLOOD, URINE BLOOD NEGATIVE (NEGATIVE); COLOR, URINE AMBER (YELLOW); GLUCOSE, URINE (UA) AUTO NEGATIVE (NEGATIVE); KETONE, URINE AUTO TRACE mg/dL (NEGATIVE); LEUKOCYTE ESTERASE, URINE AUTO 2+ (NEGATIVE); MUCUS, URINE LARGE (NEGATIVE); NITRITE, URINE AUTO NEGATIVE (NEGATIVE); PROTEIN, URINE AUTO 2+ mg/dL (NEGATIVE); RBC, URINE AUTO 1 /HPF (0-3); SPECIFIC GRAVITY URINE AUTO 1.026 (1.002-1.035); SQUAMOUS EPITHELIAL CELL UR AU 3 /HPF (0-6); WBC, URINE AUTO 69 /HPF (0-3)
== END ==
LOC: M SMT 09:53
PROVIDERS: ATTEND Physician Assistant
DX: N39.0 Urinary tract infection, site not specified (principal)

== ENCOUNTER → 2023-05-21 | Outpatient (REF) | payer MEDICARE, BC ==
[2023-05-21 19:35] LABS: ALBUMIN 3.7 G/DL (3.2-5.2); ALKALINE PHOSPHATASE 113 U/L (46-116); ALT/SGPT 34 U/L (7.0-40); AST/SGOT 25 U/L (<34); BILIRUBIN,TOTAL 0.7 MG/DL (0.3-1.2); BLOOD UREA NITROGEN 25 MG/DL (9-23); CALCIUM LEVEL 9.3 MG/DL (8.3-10.6); CARBON DIOXIDE LEVEL 30 MMOL/L (20-31); CHLORIDE LEVEL 106 MMOL/L (98-107); CHOLESTEROL LEVEL 177 MG/DL (<200); CHOLESTEROL RISK RATIO 3.16 (<5); CREATININE FOR GFR 0.94 MG/DL (0.70-1.30); GLOMERULAR FILTRATION RATE > 60.0 (>35); GLUCOSE, FASTING 101 MG/DL (74-106); POTASSIUM SERUM 3.7 MMOL/L (3.5-5.1); SODIUM LEVEL 144 MMOL/L (136-145); TOTAL PROTEIN 6.8 G/DL (5.7-8.2); TRIGLYCERIDES LEVEL 180 MG/DL (<150)
[2023-05-21 21:13] LABS: HEMOGLOBIN A1c 6.4 % (4.0-6.0)
== END ==
LOC: M SFHCCLAY 13:39
PROVIDERS: ATTEND Nurse Practitioner Family
DX: Z00.00 Encounter for general adult medical examination without abnormal findings (principal); I25.10 Atherosclerotic heart disease of native coronary artery without angina pectoris; I48.91 Unspecified atrial fibrillation; I72.8 Aneurysm of other specified arteries; I10 Essential (primary) hypertension; N28.1 Cyst of kidney, acquired; I72.3 Aneurysm of iliac artery; Z79.899 Other long term (current) drug therapy

== ENCOUNTER → 2023-12-23 | Outpatient (REF) | payer MEDICARE, BC ==
[2023-12-23 17:02] LABS: ALBUMIN 3.6 G/DL (3.2-5.2); ALKALINE PHOSPHATASE 106 U/L (46-116); ALT/SGPT 28 U/L (7.0-40); AST/SGOT 24 U/L (<34); BILIRUBIN,TOTAL 0.9 MG/DL (0.3-1.2); BLOOD UREA NITROGEN 20 MG/DL (9-23); CALCIUM LEVEL 8.8 MG/DL (8.3-10.6); CARBON DIOXIDE LEVEL 32 MMOL/L (20-31); CHLORIDE LEVEL 102 MMOL/L (98-107); CHOLESTEROL LEVEL 156 MG/DL (<200); CHOLESTEROL RISK RATIO 3.22 (<5); CREATININE FOR GFR 0.97 MG/DL (0.70-1.30); GLOMERULAR FILTRATION RATE > 60.0 (>35); GLUCOSE, FASTING 104 MG/DL (74-106); HDL CHOLESTEROL 48.3 MG/DL (>40); LDL CHOLESTEROL 71.9 MG/DL (<100); NON-HDL-C 107.7 MG/DL; POTASSIUM SERUM 3.3 MMOL/L (3.5-5.1); SODIUM LEVEL 139 MMOL/L (136-145); THYROID STIMULATING HORMONE 2.121 uIU/ML (0.55-4.78); TOTAL PROTEIN 6.7 G/DL (5.7-8.2); TRIGLYCERIDES LEVEL 179 MG/DL (<150)
[2023-12-23 17:03] LABS: FREE T4 1.34 NG/DL (0.89-1.76)
[2023-12-23 17:35] LABS: HEMOGLOBIN A1c 6.2 % (4.0-6.0)
== END ==
LOC: M SFHCCLAY 14:33
PROVIDERS: ATTEND Nurse Practitioner Family
DX: I25.10 Atherosclerotic heart disease of native coronary artery without angina pectoris (principal); I48.91 Unspecified atrial fibrillation; I72.8 Aneurysm of other specified arteries; I10 Essential (primary) hypertension; N28.1 Cyst of kidney, acquired; I72.3 Aneurysm of iliac artery; R73.03 Prediabetes

== ENCOUNTER → 2024-06-01 | Outpatient (REF) | payer MEDICARE, BC ==
[2024-06-01 15:22] LABS: APPEARANCE, URINE HAZY (CLEAR); BACTERIA, URINE AUTO 3+ (NEGATIVE); BILIRUBIN, URINE AUTO NEGATIVE (NEGATIVE); BLOOD, URINE BLOOD NEGATIVE (NEGATIVE); COLOR, URINE AMBER (YELLOW); GLUCOSE, URINE (UA) AUTO NEGATIVE (NEGATIVE); KETONE, URINE AUTO TRACE mg/dL (NEGATIVE); LEUKOCYTE ESTERASE, URINE AUTO NEGATIVE (NEGATIVE); MUCUS, URINE SMALL (NEGATIVE); NITRITE, URINE AUTO NEGATIVE (NEGATIVE); PROTEIN, URINE AUTO NEGATIVE (NEGATIVE); RBC, URINE AUTO 0 /HPF (0-3); SPECIFIC GRAVITY URINE AUTO 1.021 (1.002-1.035); SQUAMOUS EPITHELIAL CELL UR AU 1 /HPF (0-6); WBC, URINE AUTO 4 /HPF (0-3)
== END ==
LOC: M SMT 14:30
PROVIDERS: ATTEND Physician Assistant
DX: R31.21 Asymptomatic microscopic hematuria (principal)

== ENCOUNTER → 2024-06-25 | Outpatient (REF) | payer MEDICARE, BC ==
[2024-06-25 19:14] LABS: ALBUMIN 3.6 G/DL (3.2-5.2); ALKALINE PHOSPHATASE 91 U/L (40-129); ALT/SGPT 30 U/L (7.0-40); AST/SGOT 23 U/L (<34); BILIRUBIN,TOTAL 0.9 MG/DL (0.3-1.2); BLOOD UREA NITROGEN 22 MG/DL (9-23); CALCIUM LEVEL 9.5 MG/DL (8.3-10.6); CARBON DIOXIDE LEVEL 30 MMOL/L (20-31); CHLORIDE LEVEL 103 MMOL/L (98-107); CHOLESTEROL LEVEL 175 MG/DL (<200); CHOLESTEROL RISK RATIO 3.07 (<5); CREATININE FOR GFR 1.02 MG/DL (0.70-1.30); GLOMERULAR FILTRATION RATE > 60.0 (>35); GLUCOSE, FASTING 106 MG/DL (74-106); HDL CHOLESTEROL 56.9 MG/DL (>40); LDL CHOLESTEROL 87.9 MG/DL (<100); MAGNESIUM LEVEL 1.4 MG/DL (1.8-2.4); NON-HDL-C 118.1 MG/DL; POTASSIUM SERUM 3.7 MMOL/L (3.5-5.1); SODIUM LEVEL 143 MMOL/L (136-145); TOTAL PROTEIN 6.9 G/DL (5.7-8.2); TRIGLYCERIDES LEVEL 151 MG/DL (<150)
[2024-06-25 19:15] LABS: FREE T4 1.53 NG/DL (0.89-1.76); THYROID STIMULATING HORMONE 1.889 uIU/ML (0.55-4.78)
[2024-06-25 19:23] LABS: HEMOGLOBIN A1c 6.1 % (4.0-6.0)
== END ==
LOC: M SFHCCLAY 13:47
PROVIDERS: ATTEND Nurse Practitioner Family
DX: Z00.00 Encounter for general adult medical examination without abnormal findings (principal); I25.10 Atherosclerotic heart disease of native coronary artery without angina pectoris; I48.91 Unspecified atrial fibrillation; I72.8 Aneurysm of other specified arteries; I10 Essential (primary) hypertension; N28.1 Cyst of kidney, acquired; I72.3 Aneurysm of iliac artery; R73.03 Prediabetes

== ENCOUNTER → 2025-03-01 | Outpatient (REF) | payer MEDICARE, BC ==
[~2025-03-01] MED LIST changes: +ACET-1515 PO; -ACET650T15 PO
[2025-03-01 12:42] LABS: BASO # 0.1 10^3/uL (0.0-0.2); BASO % 0.8 % (0.0-1.0); EOS # 0.3 10^3/uL (0.0-0.5); EOS % 2.9 % (0.0-3.0); LYMPH # 2.7 10^3/uL (1.5-5.0); LYMPH % 28.0 % (24.0-44.0); MONO # 0.8 10^3/uL (0.0-0.8); MONO % 8.5 % (2.0-8.0); NEUTROPHILS # 5.6 10^3/uL (1.5-8.5); NEUTROPHILS % 59.2 % (36.0-66.0); PLATELET COUNT, AUTOMATED 328 10^3/uL (150-450)
[2025-03-01 12:48] LABS: ALT/SGPT 26.0 U/L (7.0-40); AST/SGOT 22.0 U/L (<34); CALCIUM LEVEL 9.1 MG/DL (8.3-10.6); CARBON DIOXIDE LEVEL 32.0 MMOL/L (20-31); CHLORIDE LEVEL 104.0 MMOL/L (98-107); CHOLESTEROL LEVEL 161.0 MG/DL (<200); CHOLESTEROL RISK RATIO 3.35 (<5); CREATININE FOR GFR 1.07 MG/DL (0.70-1.30); GLOMERULAR FILTRATION RATE 68.9 (>35); LDL CHOLESTEROL 79.8 MG/DL (<100); NON-HDL-C 113.0 MG/DL; POTASSIUM SERUM 3.3 MMOL/L (3.5-5.1); SODIUM LEVEL 146.0 MMOL/L (136-145); TRIGLYCERIDES LEVEL 166.0 MG/DL (<150)
[2025-03-01 14:09] LABS: ESTIMATED AVERAGE GLUCOSE 140.0 MG/DL (60-110)
== END ==
LOC: M SFHCCLAY 07:36
PROVIDERS: ATTEND Nurse Practitioner Family
DX: I25.10 Atherosclerotic heart disease of native coronary artery without angina pectoris (principal); I48.91 Unspecified atrial fibrillation; I72.8 Aneurysm of other specified arteries; I10 Essential (primary) hypertension; N28.1 Cyst of kidney, acquired; I72.3 Aneurysm of iliac artery; R73.03 Prediabetes